=== PATIENT | female | born 1950 | race Caucasian/White ===

== ENCOUNTER 2018-05-08 17:10 | Inpatient (IN) ==
[2018-05-08] MEDS ORDERED: Ipratropium/Albuterol Neb 3 ML ONE (17:24)
--- NOTE | 2018-05-08 17:41 | Emergency Department Note ---
Disposition Clinical Impression: ARDS (adult respiratory distress syndrome), LACY (acute kidney injury), Severe sepsis Anemia Qualifiers: Anemia type: unspecified type Qualified Code(s): D64.9 - Anemia, unspecified Pneumonia Qualifiers: Pneumonia type: due to unspecified organism Laterality: bilateral Lung location: unspecified part of lung Qualified Code(s): J18.9 - Pneumonia, unspecified organism Acute respiratory failure Qualifiers: Respiratory failure complication: hypoxia Qualified Code(s): J96.01 - Acute respiratory failure with hypoxia Disposition: Admitted As Inpatient Condition: Critical Referrals: Elda Cobb CNP [Primary Care Provider] - Forms: ED Satisfaction Letter Time of Disposition: 19:20 SOB HPI - General Chief Complaint: ED Shortness of Breath/Dyspnea Stated Complaint: YESENIA Time Seen by Provider: 05/08/18 17:29 Source: patient, family Mode of arrival: ambulatory Limitations: no limitations Nursing Notes Reviewed: Yes Vital Signs Reviewed: Yes - History of Present Illness 67-year-old female history of hypertension hyperlipidemia arrives to the emergency department with complaint of difficulty in breathing. The patient has been experiencing upper respiratory infection like symptoms, cough, congestion, productive cough over the course of the past few weeks. The states that over the past 12 hours she is acutely worsened to the point where she was struggling to breathe at home. The patient arrives to our emergency department in through triage was noted to be in the mid 50s to 60s and pulse oximetry. She was quickly brought back to the resuscitation bay. She was quickly placed on 15 L nonrebreather mask and subsequently on BiPAP. The patient was ashen martinez upon arrival to the emergency department and stated she was going to pass out. Upon being placed on BiPAP, she quickly turned around and is responsive and answering questions appropriately. Her O2 saturation remains in the upper 80s to low 90s at this time. The patient is no longer in any respiratory distress. The patient denies any complaints to include chest pain, abdominal pain, nausea, vomiting, unilateral leg swelling, recent surgeries, immobilizations, hemoptysis, history of DVT or PE. The patient is no previous cardiac history. Patient denies any other complaints at this time. - Related Data Allergies Allergy/AdvReac Type Severity Reaction Status Date / Time cephalexin [From Keflex] Allergy Hives Verified 10/05/17 11:38 All systems ED: reviewed and negative except as stated. Constitutional: Reports: chills, weakness. Denies: fever ENT ED: Denies: dysphagia Cardiovascular: Reports: dyspnea on exertion. Denies: chest pain, orthopnea, edema, syncope Respiratory: Reports: cough, dyspnea, wheezes, sputum production. Denies: hemoptysis, stridor Gastrointestinal: Denies: abdominal pain, nausea, vomiting, melena, hematochezia Genitourinary: Denies: urgency, dysuria Musculoskeletal: Reports: myalgia Integumentary: Denies: rash Neurological: Denies: headache Past Medical History - Past Medical History Attestation: Yes The following information was validated with the patient. Source: patient, old records reviewed Medical history: Reports: hyperlipidemia, hypertension, RA Surgical history: Reports: other Psychiatric history: Reports: anxiety - Social History Smoking Status: Former smoker Smokeless Tobacco Status: No Alcohol use: Reports: none Drug use: Reports: none Physical Exam - General Limitations: no limitations General appearance: alert, in distress, other (pale) - Head Head exam: atraumatic, normocephalic, normal inspection - Eye Eye exam: Present: EOMI - ENT ENT exam: normal oropharynx, mucous membranes moist - Neck Neck exam: Present: normal inspection, full ROM, trachea midline - Chest Chest inspection: Present: normal inspection, symmetric chest wall rise. Absent: tenderness - Respiratory Respiratory exam: Present: respiratory distress (Severe), wheezes, accessory muscle use, other (Rales and rhonchi noted in bilateral lung blackwood that are diffuse., Noted moderate diffuse wheezing) - Cardiovascular Cardiovascular exam: Present: regular rate, normal rhythm, normal heart sounds - Abdominal Exam Abdominal exam: Present: soft, Non-Tender. Absent: tenderness, distention, guarding, rebound, rigidity - Extremities Exam Extremities exam: Present: normal inspection, full ROM. Absent: tenderness, pedal edema - Neurological Exam Neurological exam: Present: alert, oriented X3, CN II-XII intact - Skin Skin exam: Present: warm, dry, intact, normal color Course Vital Signs Temperature 97.7 F 05/08/18 17:19 Pulse Rate 73 05/08/18 17:19 Respiratory Rate 24 05/08/18 17:19 Blood Pressure 150/61 05/08/18 17:19 O2 Sat by Pulse Oximetry 86 03/06/19 17:19 Temperature 97.7 F 05/08/18 17:19 Pulse Rate 58 05/08/18 18:20 Respiratory Rate 22 05/08/18 18:20 Blood Pressure 127/59 05/08/18 18:20 O2 Sat by Pulse Oximetry 97 05/08/18 18:20 Oxygen Delivery Oxygen Delivery Bipap Shortness of Breath/Dyspnea - MDM Narrative Medical decision making narrative: Patient's workup in the emergency department demonstrates findings concerning for septic shock likely secondary to pneumonia. The patient is a RADS. She is an acute kidney failure as well. The patient was found to be anemic with hemoglobin of 6.1. The patient will be transfused 2 units of blood. She was given 30 mL/kg IV fluids. The patient was started on vancomycin, meropenem and azithromycin. The patient had a flu swab that was obtained. That is currently pending at this time. The patient had consultation with nephrology who was seen the patient consultation. The patient will be admitted to the ICU at this time. Accepted by Dr. Weber. - Lab Data Lab results reviewed: Yes I reviewed the patient's lab results. Result diagrams: 05/08/18 17:24 05/08/18 17:24 Lab Results 05/08/18 05/08/18 05/08/18 Range/Units 17:24 17:24 17:24 WBC 27.0 H (4.3-11.1) K/mcL RBC 2.15 L (3.82-4.97) M/mcL Hgb 6.1 L (11.5-15.4) g/dL Hct 19.0 L (35.3-44.9) % MCV 88.4 (83.0-100.0) fL MCH 28.4 (28.0-33.3) pg MCHC 32.1 (31.6-35.5) g/dL RDW 13.8 (11.5-14.5) % Plt Count 688 H (140-400) K/mcL MPV 9.7 (9.4-12.4) fL Immature Gran % 2.8 (0-4) % Seg Neutrophils % 86.5 % Lymphocytes % 5.0 % Monocytes % 5.5 % Eosinophils % 0.1 % Basophils % 0.1 % Neutrophils # 23.4 H (1.6-8.9) K/mcL Lymphocytes # 1.4 (0.6-4.6) K/mcL Monocytes # 1.5 H (0.0-1.3) K/mcL Eosinophils # 0.0 (0.0-0.6) K/mcL Basophils # 0.0 (0.0-0.2) K/mcL Nucleated RBCs/100 WBC 0.2 H (0) /100 WBC Platelet Estimate Marked Increase H (Normal) Rouleaux Present A (Not Present) VBG pH (7.32-7.42) pH Units VBG pCO2 (41-51) mmHg VBG pO2 (25-50) mmHg VBG HCO3 (21-27) mEq/L Sodium 131 L (136-145) mEq/L Potassium 5.1 (3.5-5.1) mEq/L Chloride 94 L (98-107) mEq/L Carbon Dioxide 17 L (23-29) mEq/L BUN 95 H (8-23) mg/dL Creatinine 6.03 H (0.60-1.20) mg/dL Est GFR ( Amer) 8 L (> 60) Est GFR (Non-Af Amer) 7 L (> 60) BUN/Creatinine Ratio 16 (6-26) Glucose 182 H (70-105) mg/dL Calculated Osmolality 306 H (280-300) Lactic Acid 4.9 H* (0.5-2.2) mmol/L Calcium 8.8 (8.6-10.3) mg/dL Troponin I 0.04 H* (< 0.04) ng/mL B-Natriuretic Peptide (Less than 100) pg/mL Person Notif of Crit 05/08/18 05/08/18 Range/Units 17:24 17:55 WBC (4.3-11.1) K/mcL RBC (3.82-4.97) M/mcL Hgb (11.5-15.4) g/dL Hct (35.3-44.9) % MCV (83.0-100.0) fL MCH (28.0-33.3) pg MCHC (31.6-35.5) g/dL RDW (11.5-14.5) % Plt Count (140-400) K/mcL MPV (9.4-12.4) fL Immature Gran % (0-4) % Seg Neutrophils % % Lymphocytes % % Monocytes % % Eosinophils % % Basophils % % Neutrophils # (1.6-8.9) K/mcL Lymphocytes # (0.6-4.6) K/mcL Monocytes # (0.0-1.3) K/mcL Eosinophils # (0.0-0.6) K/mcL Basophils # (0.0-0.2) K/mcL Nucleated RBCs/100 WBC (0) /100 WBC Platelet Estimate (Normal) Rouleaux (Not Present) VBG pH 7.18 L* (7.32-7.42) pH Units VBG pCO2 44 (41-51) mmHg VBG pO2 66 H (25-50) mmHg VBG HCO3 16 L (21-27) mEq/L Sodium (136-145) mEq/L Potassium (3.5-5.1) mEq/L Chloride (98-107) mEq/L Carbon Dioxide (23-29) mEq/L BUN (8-23) mg/dL Creatinine (0.60-1.20) mg/dL Est GFR ( Amer) (> 60) Est GFR (Non-Af Amer) (> 60) BUN/Creatinine Ratio (6-26) Glucose (70-105) mg/dL Calculated Osmolality (280-300) Lactic Acid (0.5-2.2) mmol/L Calcium (8.6-10.3) mg/dL Troponin I (< 0.04) ng/mL B-Natriuretic Peptide 2052 H (Less than 100) pg/mL Person Notif of Camila GOLDSTEIN - Radiology Data Radiology results reviewed: Yes I reviewed the patient's radiology results. Chest X-Ray 05/08/18 17:29 IMPRESSION: 1. Diffuse airspace opacities, right greater left. Findings are concerning for infection in the appropriate clinical setting. Asymmetric edema remains a differential consideration. D/ / Aura De Jesus MD / Aura De Jesus MD Interpreting Provider: Aura De Jesus MD - EKG Data EKG attestation: Yes I reviewed and interpreted this EKG. EKG results narrative: Heart rate 59 beats for minute. Normal sinus bradycardia. No ST elevation or ST depression noted. No acute changes noted.
[2018-05-08] MEDS ORDERED: Ipratropium/Albuterol Neb 3 ML IH STA (17:49)
[2018-05-08] MEDS ORDERED: Meropenem 1,000 MG in Water for inj. (sterile) 20 ML 10 ML IVP STA (17:54)
[2018-05-08] MEDS ORDERED: Azithromycin 500 MG in D5% in Water 250 ML IVPB ONE (17:54)
[2018-05-08 17:58] LABS: Basophils % 0.1 %; Eosinophils % 0.1 %; Hemoglobin 6.1 g/dL (11.5-15.4); Immature Granulocytes % 2.8 % (0-4); Lymphocytes # 1.4 K/mcL (0.6-4.6); Mean Corpuscular HGB Conc 32.1 g/dL (31.6-35.5); Mean Corpuscular Hemoglobin 28.4 pg (28.0-33.3); Mean Corpuscular Volume 88.4 fL (83.0-100.0); Mean Platelet Volume 9.7 fL (9.4-12.4); Monocytes # 1.5 K/mcL (0.0-1.3); Monocytes % 5.5 %; Nucleated Red Blood Cells 0.2 /100 WBC (0); Platelet Count 688 K/mcL (140-400); Red Blood Count 2.15 M/mcL (3.82-4.97); Red Cell Distribution Width 13.8 % (11.5-14.5); Segmented Neutrophils % 86.5 %
[2018-05-08 18:00] LABS: Neutrophils # 23.4 K/mcL (1.6-8.9)
[2018-05-08 18:03] LABS: VBG HCO3 16 mEq/L (21-27); VBG PCO2 44 mmHg (41-51); VBG PH 7.18 pH Units (7.32-7.42); VBG PO2 66 mmHg (25-50)
[2018-05-08 18:19] LABS: Calcium 8.8 mg/dL (8.6-10.3); Potassium 5.1 mEq/L (3.5-5.1)
[2018-05-08 18:21] LABS: Platelet Estimate Marked Increase (Normal); Rouleaux Present (Not Present)
[2018-05-08 18:24] LABS: Troponin I 0.04 ng/mL (< 0.04)
[2018-05-08] MEDS ORDERED: Aspirin 325 MG TABLET PO ONE (18:34)
--- NOTE | 2018-05-08 19:24 | Emergency Department Note ---
Disposition Clinical Impression: Septic shock, ARDS (adult respiratory distress syndrome), LACY (acute kidney injury) Anemia Qualifiers: Anemia type: unspecified type Qualified Code(s): D64.9 - Anemia, unspecified Pneumonia Qualifiers: Pneumonia type: due to unspecified organism Laterality: bilateral Lung location: unspecified part of lung Qualified Code(s): J18.9 - Pneumonia, unspecified organism Acute respiratory failure Qualifiers: Respiratory failure complication: hypoxia Qualified Code(s): J96.01 - Acute respiratory failure with hypoxia Disposition: Admitted As Inpatient Condition: Critical Referrals: Elda Cobb [employer] EDGER [Primary Care Provider] - Forms: ED Satisfaction Letter General Adult HPI - General Chief complaint: ED Shortness of Breath/Dyspnea Stated complaint: YESENIA Time Seen by Provider: 05/08/18 17:29 Source: patient, family Mode of arrival: ambulatory Limitations: no limitations - History of Present Illness Pain Scale: 0 - Related Data Allergies Allergy/AdvReac Type Severity Reaction Status Date / Time cephalexin [From Keflex] Allergy Hives Verified 10/05/17 11:38 Constitutional: Reports: chills, weakness. Denies: fever ENT ED: Denies: dysphagia Cardiovascular: Reports: dyspnea on exertion. Denies: chest pain, orthopnea, edema, syncope Respiratory: Reports: cough, dyspnea, wheezes, sputum production. Denies: hemoptysis, stridor Gastrointestinal: Denies: abdominal pain, nausea, vomiting, melena, hematochezia Genitourinary: Denies: urgency, dysuria Musculoskeletal: Reports: myalgia Integumentary: Denies: rash Neurological: Denies: headache Past Medical History - Past Medical History Medical history: Reports: hyperlipidemia, hypertension, RA Surgical history: Reports: other Psychiatric history: Reports: anxiety - Social History Smoking Status: Former smoker Smokeless Tobacco Status: No Alcohol use: Reports: none Drug use: Reports: none Physical Exam - General Limitations: no limitations General appearance: alert, in distress, other (pale) Course Vital Signs Temperature 97.7 F 05/08/18 17:19 Pulse Rate 73 05/08/18 17:19 Respiratory Rate 24 05/08/18 17:19 Blood Pressure 150/61 05/08/18 17:19 O2 Sat by Pulse Oximetry 86 05/08/18 17:19 Temperature 97.7 F 05/08/18 17:19 Pulse Rate 58 05/08/18 18:20 Respiratory Rate 22 05/08/18 18:20 Blood Pressure 127/59 05/08/18 18:20 O2 Sat by Pulse Oximetry 97 05/08/18 18:20 Oxygen Delivery Oxygen Delivery Bipap Medical Decision Making - Lab Data Result diagrams: 05/08/18 17:24 05/08/18 17:24 Lab Results 05/08/18 05/08/18 05/08/18 Range/Units 17:24 17:24 17:24 WBC 27.0 H (4.3-11.1) K/mcL RBC 2.15 L (3.82-4.97) M/mcL Hgb 6.1 L (11.5-15.4) g/dL Hct 19.0 L (35.3-44.9) % MCV 88.4 (83.0-100.0) fL MCH 28.4 (28.0-33.3) pg MCHC 32.1 (31.6-35.5) g/dL RDW 13.8 (11.5-14.5) % Plt Count 688 H (140-400) K/mcL MPV 9.7 (9.4-12.4) fL Immature Gran % 2.8 (0-4) % Seg Neutrophils % 86.5 % Lymphocytes % 5.0 % Monocytes % 5.5 % Eosinophils % 0.1 % Basophils % 0.1 % Neutrophils # 23.4 H (1.6-8.9) K/mcL Lymphocytes # 1.4 (0.6-4.6) K/mcL Monocytes # 1.5 H (0.0-1.3) K/mcL Eosinophils # 0.0 (0.0-0.6) K/mcL Basophils # 0.0 (0.0-0.2) K/mcL Nucleated RBCs/100 WBC 0.2 H (0) /100 WBC Platelet Estimate Marked Increase H (Normal) Rouleaux Present A (Not Present) VBG pH (7.32-7.42) pH Units VBG pCO2 (41-51) mmHg VBG pO2 (25-50) mmHg VBG HCO3 (21-27) mEq/L Sodium 131 L (136-145) mEq/L Potassium 5.1 (3.5-5.1) mEq/L Chloride 94 L (98-107) mEq/L Carbon Dioxide 17 L (23-29) mEq/L BUN 95 H (8-23) mg/dL Creatinine 6.03 H (0.60-1.20) mg/dL Est GFR ( Amer) 8 L (> 60) Est GFR (Non-Af Amer) 7 L (> 60) BUN/Creatinine Ratio 16 (6-26) Glucose 182 H (70-105) mg/dL Calculated Osmolality 306 H (280-300) Lactic Acid 4.9 H* (0.5-2.2) mmol/L Calcium 8.8 (8.6-10.3) mg/dL Troponin I 0.04 H* (< 0.04) ng/mL B-Natriuretic Peptide (Less than 100) pg/mL Person Notif of Crit 05/08/18 05/08/18 Range/Units 17:24 17:55 WBC (4.3-11.1) K/mcL RBC (3.82-4.97) M/mcL Hgb (11.5-15.4) g/dL Hct (35.3-44.9) % MCV (83.0-100.0) fL MCH (28.0-33.3) pg MCHC (31.6-35.5) g/dL RDW (11.5-14.5) % Plt Count (140-400) K/mcL MPV (9.4-12.4) fL Immature Gran % (0-4) % Seg Neutrophils % % Lymphocytes % % Monocytes % % Eosinophils % % Basophils % % Neutrophils # (1.6-8.9) K/mcL Lymphocytes # (0.6-4.6) K/mcL Monocytes # (0.0-1.3) K/mcL Eosinophils # (0.0-0.6) K/mcL Basophils # (0.0-0.2) K/mcL Nucleated RBCs/100 WBC (0) /100 WBC Platelet Estimate (Normal) Rouleaux (Not Present) VBG pH 7.18 L* (7.32-7.42) pH Units VBG pCO2 44 (41-51) mmHg VBG pO2 66 H (25-50) mmHg VBG HCO3 16 L (21-27) mEq/L Sodium (136-145) mEq/L Potassium (3.5-5.1) mEq/L Chloride (98-107) mEq/L Carbon Dioxide (23-29) mEq/L BUN (8-23) mg/dL Creatinine (0.60-1.20) mg/dL Est GFR ( Amer) (> 60) Est GFR (Non-Af Amer) (> 60) BUN/Creatinine Ratio (6-26) Glucose (70-105) mg/dL Calculated Osmolality (280-300) Lactic Acid (0.5-2.2) mmol/L Calcium (8.6-10.3) mg/dL Troponin I (< 0.04) ng/mL B-Natriuretic Peptide 2052 H (Less than 100) pg/mL Person Notif of Camila GOLDSTEIN Attestation Statement - Attestation Attestation: I examined this patient and my medical decision-making was reviewed with the Resident Physician. I agree with the documented findings, disposition and treatment plan as described except to the extent set forth below. Patient arrives profoundly hypoxemic and pale-appearing. Heart rate and blood pressure unremarkable. Chest x-ray shows diffuse interstitial pneumonia versus ARDS. Profoundly anemic with hemoglobin of 6, transfusion ordered. Has a metabolic acidosis evident on her venous blood gas. Significant leukocytosis and thrombocytosis. Vancomycin, Zithromax and meropenem for broad-spectrum a ntibiotic coverage for suspected pulmonary infection with resultant ARDS. Oxygenation drastically improved in ED, from the 60s on room air with a good waveform, to the low 80s on a nonrebreather mask, to the mid to high 90s on BiPAP. On BiPAP, she was comfortable with a slowed respiratory rate, sitting up in bed taxing on her phone and interacting with her . Intubation would not be appropriate at this time. She has acute renal failure with BUN of 98, creatinine of 6. Potassium is normal. Lactate significant elevated. She is given IV fluids in addition to the blood transfusion. Critical care time: I was directly and primarily involved in the care of this patient for 35 minutes excluding procedures.
[2018-05-08] MEDS: 0.9 % Sodium Chloride 1,000 ML IVC SCH ×2 (19:31→22:34)
[2018-05-08] MEDS ORDERED: 0.9 % Sodium Chloride 250 ML ONE (20:59)
[2018-05-08] MEDS ORDERED: *HR* Atropine Sulfate 1 MG/10 ML SYRINGE ONE (21:45)
[2018-05-08] MEDS: FentaNYL (PF) 1,000 MCG in 0.9 % Sodium Chloride 80 ML IVC SCH (23:29)
--- NOTE | 2018-05-09 00:21 | Internal Med History&Physical ---
<Capo Horton - Last Filed: 05/09/18 02:34> Date of Encounter: 05/09/18 Time of Encounter: 21:00 Internal Medicine - H&P: HPI Chief complaint: SOB History of present illness: Ms. Benjamin is a 67 year old female who presented to the emergency department with concern for worsening shortness of breath. Patient has been battling several respiratory infections over the last 2 months. She is reportedly been on amoxicillin as well as Augmentin. Patient states that she never got better. She reports that she has had worsening shortness of breath while ambulation, most being today which brought her to the emergency department. She states that she was a smoker long time ago, but never had a formal diagnosis of COPD he has never been on oxygen via nasal cannula. Patient denies any chest pain, pressure, tightness. She denies any swelling in her lower extremities. She does report that she has had cough. Patient was called from the emergency department with concern for ARDS in the setting of severe sepsis with an organ damage consistent with shock. Blood pressures were normal at that time and she did not require any pressors. Patient was currently on BiPAP and mentating appropriately. Does also report that patient was anemic with hemoglobin 6.1, leukocytosis of 27. The order for transfusion of 2 units of PRBCs was made. Patient had a creatinine of 6.03 with a GFR of 7. Nephrology was consulted. Patient was able to speak to me upon questioning. Past Med Surg Social Fam HX - Past Medical History Medical history: hyperlipidemia, hypertension, RA Additional medical history: left leg pain Psychiatric history: anxiety - Past Surgical History Surgical History: other Additional surgical history: T&A, tubal ligation. heart cath - Social History Smoking Status: Former smoker Smokeless Tobacco Status: No Alcohol use: none Drug use: none Internal Medicine - H&P: Meds Atenolol [Tenormin] 25 mg PO DAILY 05/08/18 [History] Bupropion HCl [Wellbutrin Xl] 300 mg PO QAM 05/08/18 [History] Cholecalciferol (Vitamin D3) [Vitamin D] 400 unit PO DAILY 05/08/18 [History] Cinnamon Bark [Cinnamon] 500 mg PO DAILY 05/08/18 [History] Losartan/Hydrochlorothiazide [Losartan-Hctz 100-25 mg Tab] 1 each PO DAILY 05/08/18 [History] [place]-3S/Dha/Epa/Fish Oil [Fish Oil Dr 1,000 mg Softgel] 1 each PO DAILY 05/08/18 [History] Allergy/AdvReac Type Severity Reaction Status Date / Time cephalexin [From Keflex] Allergy Hives Verified 10/05/17 11:38 All Systems PM: A 10-system review of systems was performed and is negative for pertinent findings except as documented above in the HPI. - Constitutional Constitutional: malaise - Cardiovascular Cardiovascular ROS IM: dyspnea on exertion - Respiratory Respiratory: dyspnea - Gastrointestinal Gastrointestinal: no abdominal pain - Genitourinary Genitourinary: no dysuria - Hematologic/Lymphatic Hematologic/Lymphatic: no easy bleeding - Constitutional Vitals: Temp Pulse Resp BP Pulse Ox 97.0 F L 52 18 95/50 99 05/09/18 00:04 05/09/18 00:04 05/09/18 00:04 05/09/18 00:04 05/09/18 00:04 General appearance: Present: A&O X 3 Exam: General: The patient on BiPAP, with abdominal and chest retractions, mentating perfectly, but appearing very short of breath Head: autraumatic, EOMI, no conjuncitval pallor, no scleral icterus, Neck: neck soft, trachea midline Chest:: Equal chest wall rise Lungs: Diffuse crackles bilaterally, no wheezes, patient BiPAP Heart: normal heart sounds, normal rhythm, Abdomen: soft, non-tender, no rigidity, no guarding, no rebdound tenderness Integumentary: Skin warm, dry, and intact Lower extremity: No pedal edema Neuro: Alert Psych: normal affect, normal mood Internal Med - H&P Results - Labs CBC & Chem 7: 05/08/18 17:24 05/08/18 17:24 Labs: Short CBC 05/08/18 Range/Units 17:24 WBC 27.0 H (4.3-11.1) K/mcL Hgb 6.1 L (11.5-15.4) g/dL Hct 19.0 L (35.3-44.9) % Plt Count 688 H (140-400) K/mcL Neutrophils # 23.4 H (1.6-8.9) K/mcL BMP 05/08/18 17:24 Sodium 131 L Potassium 5.1 Chloride 94 L Carbon Dioxide 17 L BUN 95 H Creatinine 6.03 H Glucose 182 H Calcium 8.8 Cardiac Enzymes 05/08/18 Range/Units 17:24 Troponin I 0.04 H* (< 0.04) ng/mL - ABG Interpretation ABG results: 05/08/18 17:55 VBG pH 7.18 L* VBG pCO2 44 VBG pO2 66 H VBG HCO3 16 L - Impressions ITS Impressions Chest X-Ray 05/08/18 17:29 IMPRESSION: 1. Diffuse airspace opacities, right greater left. Findings are concerning for infection in the appropriate clinical setting. Asymmetric edema remains a differential consideration. D/ / Aura De Jesus MD / Aura De Jesus MD Interpreting Provider: Aura De Jesus MD Chest X-Ray 05/08/18 23:04 IMPRESSION: Life support devices as above. Redemonstration of diffuse right greater than left heterogeneous opacities and consolidation. D/ / Nirav Alcantar / Nirav Sessions Interpreting Provider: Nirav Alcantar - Assessment and Plan (1) ARDS (adult respiratory distress syndrome) Current Visit: Yes Status: Acute Assessment and plan: Patient with concerns for ARDS with chest x-ray with bilateral diffuse infiltrates in the setting of recent diagnosis of URI. Patient with elevated lactic acid of 4.9. Patient not provided with Fluid boluses at this time to maintain lung support in the setting of ARDS. Repeat lactic acid not performed at scheduled time secondary to patient's respiratory status requiring intubation. In the emergency department, patient was tachypnic, and appeared to be working hard to breathe. Patient appeared to become fatigued as she arrived to the ICU and was not mentating as well. It was felt necessary to intubate her as she did not improve on the BIPAP and for ARDS lung protective strategies. My attending Dr. Birmingham spoke with Dr. Schwartz in regards to the patient. He agreeed with intubation as well as not providing boluses of fluids at this time. - Patient intubated, sedated with propofol and fentanyl - paralyze patient with vecuronium at the time - one dose of solu-medrol 125mg IV - continue low tidal volumes on ventilator for ideal body weight at 300 with rate of 20 with PEEP of 8 - legionella, urine strep antigen, influenza negative, RIP negative -blood cultures pending - Repeat ABG at 0400 - initial troponin of 0.04, bnp 2051, obtain echocardiogram to rule out CHF. - pulmonology consulted Chest X-Ray 05/08/18 23:04 IMPRESSION: Life support devices as above. Redemonstration of diffuse right greater than left heterogeneous opacities and consolidation. D/ / Nirav Sessions / Nirav Sessions Interpreting Provider: Nirav Alcantar (2) Pneumonia Current Visit: Yes Status: Acute Assessment and plan: - One dose of vancomycin, meripenem, azithromycin in the ED - Will give zosyn, vancomycin, levoquine. - Awaiting MRSA swab -sputum cultures ordered -respiratory infection panel sent and was negative Qualifiers: Pneumonia type: due to unspecified organism Laterality: bilateral Lung location: unspecified part of lung Qualified Code(s): J18.9 - Pneumonia, unspecified organism (3) Anemia Current Visit: Yes Status: Acute Assessment and plan: Patient anemic with unknown source at this time. Patient required transfusion of two units of blood at time of arrival to the ICU. -Recheck hemoglobin and hematocrit after transfusion of blood - obtain hemocult - consider EGD, colonoscopy - obtain peripheral blood smear - patient with large blood in urine, consider CT abdomen and pelvis once patient becomes more stable Qualifiers: Anemia type: unspecified type Qualified Code(s): D64.9 - Anemia, unspecified (4) Acute respiratory failure Current Visit: Yes Status: Acute Assessment and plan: as above Qualifiers: Respiratory failure complication: hypoxia Qualified Code(s): J96.01 - Acute respiratory failure with hypoxia (5) LACY (acute kidney injury) Current Visit: Yes Status: Acute Assessment and plan: Patient with creatinine of 6.03. Suspect that this is all secondary to end organ damage from patient's ARDS. Patients potassium currently 5.1 - nephrology consulted by the emergency department - obtain urine sodium -obtain urine creatinine - magnesium -phosphorous - consider retroperioneal US, CT abdomen and pelvis as mentioned above (6) Severe sepsis Current Visit: Yes Status: Acute Assessment and plan: see above (7) DVT prophylaxis Current Visit: Yes Status: Acute Assessment and plan: ICDs at this time as patient significantly anemic (8) Full code status Current Visit: Yes Status: Acute - Time Spent With Patient Total time spent is greater than 50% in coordination of care (as documented) at patient's floor/unit and/or counseling patient: Procedures - Intubation sedative: Etomidate Mg Given: 20 paralytic: Succinylcholine Mg Given: 70 Laryngoscope: Fallon ET Tube Size: 7.5 ET Tube Uncuffed: No Tube Secured Depth (cm): 22 Tube Secured Location: lips Tube Placement Confirmation: visualized tube passing through cords, equal breath sounds bilaterally, no breath sounds over epigastrium, confirmation by capnometry Patient Tolerated Procedure: well, no complications Intubation Complications: none <Ryna Birmingham - Last Filed: 05/09/18 05:38> Date of Encounter: 05/08/18 Time of Encounter: 21:10 Past Med Surg Social Fam HX - Past Medical History Attestation: Yes The following information was validated with the patient. Source: patient, old records reviewed, obtained from family, other (phone conversation w son ([place], [place]) and ER conversations) - Constitutional Constitutional: chills, fatigue, fever(s), weakness, no night sweats - EENT Eyes: no blurry vision, no change in vision Ears: no ear pain, no tinnitus Nose, mouth and throat: no nasal congestion, no nasal discharge, no sore throat - Cardiovascular Cardiovascular ROS IM: dyspnea, dyspnea on exertion, no chest pain, no edema, no lightheadedness, no paroxysmal nocturnal dyspnea - Respiratory Respiratory: cough, dyspnea, dyspnea on exertion, wheezing, chest congestion, change in phlegm color, no hemoptysis, no pain on inspiration, no excessive phlegm production, no pain with cough - Gastrointestinal Gastrointestinal: nausea, no abdominal pain, no diarrhea, no hematemesis, no hematochezia, no melena, no vomiting - Genitourinary Genitourinary: no dysuria, no flank pain, no hematuria Menstruation: post menopausal Additional comments: no post-menopausal bleeding - Musculoskeletal Musculoskeletal ROS IM: no arthralgias, no back pain, no myalgias - Integumentary Integumentary IM: no rash, no jaundice - Neurological Neurological ROS: no dizziness, no focal weakness, no frequent falls, no headache(s) - Psychiatric Psychiatric: no anxiety, no depression - Endocrine Endocrine IM: no polydipsia, no polyphagia, no polyuria - Allergic/Immunologic Allergic/Immunologic: wheezing, no GI upset with certain foods - Constitutional Vitals: Temp Pulse Resp BP Pulse Ox 95.0 F L 46 26 93/51 96 05/09/18 03:00 05/09/18 05:00 05/09/18 05:00 05/09/18 05:00 05/09/18 05:00 General appearance: Present: cooperative, A&O X 3, pleasant, severe distress, answers questions appropriately Exam: Patient with development of respiratory fatigue and depressing mental status from initial assessment up to the point of intubation - Head Head exam: Present: atraumatic, normal inspection - Eye Eye exam: Present: EOMI, PERRL. Absent: scleral icterus, conjuntiva pink (pale) - ENT ENT exam: Present: mucous membranes dry, normal exam, normal oropharynx - Neck Neck exam general surgery: Present: full ROM, supple, trachea midline. Absent: lymphadenopathy, tenderness, nuchal rigidity, thyromegaly - Respiratory Respiratory exam: Present: accessory muscle use, prolonged expiratory phase, rales (dry crackles throughout -- predominantly in right base), respiratory distress, rhonchi, wheezes, tachypnea. Absent: chest wall tenderness Additional comments: accessory muscle use - Cardiovascular Cardiovascular exam: Present: bradycardia (HR 50's), distant heart sounds, RRR, +S1, +S2. Absent: diastolic murmur, JVD, systolic murmur - GI/Abdominal GI/Abdominal exam: Present: normal bowel sounds, soft, no peritoneal signs. Absent: guarding, hepatomegaly, mass, rebound, splenomegaly, tenderness - Extremities Exam Extremities exam: Present: full ROM, warm, radial pulses palpable and symmetrical. Absent: calf tenderness, joint swelling, normal capillary refill (delayed at roughly 3 -4 seconds), pedal edema, tenderness - Back Exam Back exam: Absent: CVA tenderness (L), CVA tenderness (R) - Neurological Exam Neurological exam: Present: alert, CN II-XII intact, oriented X3, no focal deficits, strengths equal and symetr throughout. Absent: motor sensory deficit - Psychiatric Psychiatric exam: Present: normal affect, normal mood - Skin Skin exam: Present: dry, intact, pallor, warm. Absent: petechiae, rash Internal Med - H&P Results - Labs CBC & Chem 7: 05/09/18 03:38 05/09/18 03:38 Labs: Short CBC 05/08/18 05/09/18 Range/Units 17:24 03:38 WBC 27.0 H 19.8 H (4.3-11.1) K/mcL Hgb 6.1 L 7.7 L D (11.5-15.4) g/dL Hct 19.0 L 23.4 L (35.3-44.9) % Plt Count 688 H 469 H (140-400) K/mcL Neutrophils # 23.4 H 17.2 H (1.6-8.9) K/mcL BMP 05/08/18 05/09/18 17:24 03:38 Sodium 131 L 128 L Potassium 5.1 5.3 H Chloride 94 L 94 L Carbon Dioxide 17 L 20 L BUN 95 H 94 H Creatinine 6.03 H 6.33 H Glucose 182 H 125 H Calcium 8.8 8.3 L Cardiac Enzymes 05/08/18 05/09/18 Range/Units 17:24 03:38 Troponin I 0.04 H* 0.03 (< 0.04) ng/mL Urine 05/09/18 Range/Units 00:42 Urine Color Dark Yellow (Yellow) Urine Clarity Turbid A (Clear) Urine pH 5.0 (5.0-8.0) pH Units Ur Specific [place]er 1.019 (1.010-1.025) Urine Protein 100 H (Neg-Trace) mg/dL Urine Glucose (UA) Normal (Normal) mg/dL - ABG Interpretation Interpretation: ABG interpreted by me ABG results: 05/08/18 05/09/18 05/09/18 17:55 00:39 04:37 ABG pH 7.28 L 7.17 L* ABG pCO2 43 62 H ABG pO2 100 100 ABG HCO3 20 L 22 ABG Total CO2 22 24 ABG O2 Saturation 97 95 ABG Base Excess -6 L -6 L VBG pH 7.18 L* VBG pCO2 44 VBG pO2 66 H VBG HCO3 16 L Interpretation: metabolic acidosis - Impressions ITS Impressions Chest X-Ray 05/08/18 17:29 IMPRESSION: 1. Diffuse airspace opacities, right greater left. Findings are concerning for infection in the appropriate clinical setting. Asymmetric edema remains a differential consideration. D/ / Aura De Jesus MD / Aura De Jesus MD Interpreting Provider: Aura De Jesus MD Chest X-Ray 05/08/18 23:04 IMPRESSION: Life support devices as above. Redemonstration of diffuse right greater than left heterogeneous opacities and consolidation. D/ / Nirav Sessions / Nirav Sessions Interpreting Provider: Niarv Sessions - Diagnostic Studies Chest x-ray Status: image reviewed by me (diffuse infiltrates concerning for ARDS) - Time Spent With Patient Total time spent is greater than 50% in coordination of care (as documented) at patient's floor/unit and/or counseling patient: - Attending Attestation I discussed the patient N[place]QS[place], past medical history, review of systems, lab data, imaging data, and exam findings with Dr. Henderson. I then saw and examined patient independently in the ER and met extensively with patient, family, and her son via telephone. I reassessed the patient several times prior to arrival to the ICU. I contacted Dr. Schwartz and discussed the case with him and my concern for ARDS. We reviewed the history, exam findings, lab data, and imaging findings. He agreed with me that we should likely proceed to intubate her before she decompensates any further. Therefore, once she arrived to the ICU, I reassessed patient again and she had signs and symptoms of respiratory fatigue and worsening somnolence/mental status. I therefore recommended intubation at that time. Patient, , all family members, and her son via telephone, all agreed with my recommendation. Therefore, we proceeded to intubate as detailed separately above by Dr. Henderson. Airway was secured and patient was placed on ventilator. We sedated her and placed her on paralytic agent to help maximize ventilatory support. Based upon clinical picture, exam findings, and ventilatory status are all compatible with ARDS. We ordered respiratory infection panel which was negative. Sputum/tracheal sample is ordered for culture and Gram stain. However, at this time, respiratory is unable to collect any significant sample for culture. Regarding her anemia, patient and family deny any history of blood loss whatsoever. Furthermore, she has no history of any postmenopausal bleeding. She is getting blood transfusions and we will watch her hemoglobin closely. Once stabilized, she will likely need EGD/colonoscopy to rule out any chronic GI blood loss. Nephrology is also consulted as she may need CVVHD. Pulmonology has been consulted as well for ICU/ARDS management. A total of 115 minutes critical care time spent thus far caring for patient, supervising intubation, discussing with family, and coordinating care with Dr. Schwartz and respiratory therapy.
[2018-05-09 00:43] LABS: ABG Base Excess -6 mEq/L (-2 to 3); ABG HCO3 20 mEq/L (21-27); ABG Oxygen Saturation 97 % (95-98); ABG PCO2 43 mmHg (35-45); ABG PH 7.28 pH Units (7.32-7.45); ABG PO2 100 mmHg (85-104); ABG TCO2 22 mEq/L (20-26); Blood Gas Modality PRVC; Blood Gas PEEP 8 cm H2O; Blood Gas Respiration Rate 16; Blood Gas VT 380 cc
[2018-05-09 00:57] LABS: Bilirubin,Urine Negative (Negative); Blood,Urine Large (Negative); Clarity,Urine Turbid (Clear); Color,Urine Dark Yellow (Yellow); Glucose,Urine (UA) Normal (Normal); Ketones,Urine Negative (Negative); Leukocyte Esterase,Urine Moderate (Negative); Nitrite,Urine Negative (Negative); Protein,Urine 100 mg/dL (Neg-Trace); Specific Gravity,Urine 1.019 (1.010-1.025); Urobilinogen,Urine Normal (Normal)
[2018-05-09] MEDS ORDERED: Vecuronium 50 MG in 0.9 % Sodium Chloride 200 ML IVC SCH (01:00)
[2018-05-09 01:11] LABS: Squamous Epithelial Cell,Urine Many per lpf (None-Few); WBC,Urine 15-30 per hpf (0-3)
[2018-05-09 01:12] LABS: Amorphous Sediment,Urine Few (Few); Bacteria,Urine Few per hpf (None-Few)
[2018-05-09 01:49] LABS: Adenovirus Not Detected (Not Detect); Bordetella Pertussis Not Detected (Not Detect); Chlamydophila pneumoniae Not Detected (Not Detect); Coronavirus 229E Not Detected (Not Detect); Coronavirus HKU1 Not Detected (Not Detect); Coronavirus NL63 Not Detected (Not Detect); Coronavirus OC43 Not Detected (Not Detect); Human Metapneumovirus Not Detected (Not Detect); Human Rhinovirus/Enterovirus Not Detected (Not Detect); Influenza A Subtype 2009 H1 Not Detected (Not Detect); Influenza A Untypeable Not Detected (Not Detect); Influenza B Not Detected (Not Detect); Mycoplasma pneumoniae Not Detected (Not Detect); Parainfluenza Virus 1 Not Detected (Not Detect); Parainfluenza Virus 2 Not Detected (Not Detect); Parainfluenza Virus 3 Not Detected (Not Detect); Parainfluenza Virus 4 Not Detected (Not Detect); Respiratory Syncytial Virus Not Detected (Not Detect)
[2018-05-09] MEDS ORDERED: methylPREDNISolone 125 MG/2 ML VIAL IVP ONE (02:32)
[2018-05-09] MEDS: FentaNYL (PF) 1,000 MCG in 0.9 % Sodium Chloride 80 ML IVC SCH (03:15)
[2018-05-09 03:52] LABS: Basophils % 0.2 %; Eosinophils % 0.1 %; Hematocrit 23.4 % (35.3-44.9); Immature Granulocytes % 1.7 % (0-4); Lymphocytes # 1.4 K/mcL (0.6-4.6); Lymphocytes % 6.9 %; Mean Corpuscular HGB Conc 32.9 g/dL (31.6-35.5); Mean Corpuscular Hemoglobin 28.2 pg (28.0-33.3); Mean Corpuscular Volume 85.7 fL (83.0-100.0); Mean Platelet Volume 9.6 fL (9.4-12.4); Monocytes # 0.9 K/mcL (0.0-1.3); Monocytes % 4.3 %; Neutrophils # 17.2 K/mcL (1.6-8.9); Nucleated Red Blood Cells 0.4 /100 WBC (0); Platelet Count 469 K/mcL (140-400); Red Blood Count 2.73 M/mcL (3.82-4.97); Red Cell Distribution Width 14.3 % (11.5-14.5); Segmented Neutrophils % 86.8 %
[2018-05-09 03:53] LABS: Hemoglobin 7.7 g/dL (11.5-15.4)
[2018-05-09 03:58] LABS: VBG Ionized Calcium 1.06 mmol/L (1.15-1.35)
[2018-05-09 04:08] LABS: Calcium 8.3 mg/dL (8.6-10.3); Magnesium 2.7 mg/dL (1.6-2.6); Potassium 5.3 mEq/L (3.5-5.1)
[2018-05-09 04:12] LABS: Phosphorous 9.4 mg/dL (2.7-4.5)
[2018-05-09 04:41] LABS: ABG Base Excess -6 mEq/L (-2 to 3); ABG HCO3 22 mEq/L (21-27); ABG Oxygen Saturation 95 % (95-98); ABG PCO2 62 mmHg (35-45); ABG PH 7.17 pH Units (7.32-7.45); ABG PO2 100 mmHg (85-104); ABG TCO2 24 mEq/L (20-26); Blood Gas Modality PRVC; Blood Gas PEEP 8 cm H2O; Blood Gas Respiration Rate 20; Blood Gas VT 300 cc
[2018-05-09 06:00] LABS: ABG Base Excess -7 mEq/L (-2 to 3); ABG HCO3 21 mEq/L (21-27); ABG Oxygen Saturation 93 % (95-98); ABG PCO2 55 mmHg (35-45); ABG PH 7.19 pH Units (7.32-7.45); ABG PO2 83 mmHg (85-104); ABG TCO2 23 mEq/L (20-26); Blood Gas Modality PRVC; Blood Gas PEEP 8 cm H2O; Blood Gas Respiration Rate 26; Blood Gas VT 300 cc
[2018-05-09] MEDS ORDERED: Piperacillin/Tazobactam 3.375 GM in 0.9 % Sodium Chloride Mini Bag 100 ML IVPB SCH (06:00)
--- NOTE | 2018-05-09 06:17 | Pulmonology Consult Note ---
<LanaCe M - Last Filed: 05/09/18 10:29> Date of Encounter: 05/09/18 Medications and Allergies Atenolol [Tenormin] 25 mg PO DAILY 05/08/18 [History] Bupropion HCl [Wellbutrin Xl] 300 mg PO QAM 05/08/18 [History] Cholecalciferol (Vitamin D3) [Vitamin D] 400 unit PO DAILY 05/08/18 [History] Cinnamon Bark [Cinnamon] 500 mg PO DAILY 05/08/18 [History] Losartan/Hydrochlorothiazide [Losartan-Hctz 100-25 mg Tab] 1 each PO DAILY 05/08/18 [History] [place]-3S/Dha/Epa/Fish Oil [Fish Oil Dr 1,000 mg Softgel] 1 each PO DAILY 05/08/18 [History] Allergy/AdvReac Type Severity Reaction Status Date / Time cephalexin [From Keflex] Allergy Hives Verified 10/05/17 11:38 All Systems: The remainder of the systems were reviewed and are negative Physical Examination Vital Signs: Vital Signs, Last 4 Hours Temp Pulse Resp BP Pulse Ox 05/09/18 09:39 22 99/58 97 05/09/18 09:00 47 22 88/47 97 05/09/18 08:34 22 96 05/09/18 08:00 97.7 F 49 20 87/48 96 05/09/18 07:24 26 91/49 97 05/09/18 07:00 50 26 91/49 96 05/09/18 06:21 26 89/49 95 05/09/18 06:00 48 26 89/50 95 Ventilator Settings Ventilator Settings: Ventilator Settings, Last 8 Hours Ventilator Tidal Volume 380 Setting Ventilator Tidal Volume 380 Setting Ventilator Tidal Volume 380 Setting Ventilator Tidal Volume 380 Setting Ventilator Tidal Volume 300 Setting Ventilator Tidal Volume 300 Setting Ventilator Tidal Volume 300 Setting Ventilator Tidal Volume 300 Setting Ventilator Tidal Volume 300 Setting Ventilator Tidal Volume 300 Setting Ventilator Tidal Volume 300 Setting Ventilator Tidal Volume 300 Setting Ventilator Tidal Volume 300 Setting Ventilator Tidal Volume 300 Setting Ventilator Tidal Volume 300 Setting Ventilator Tidal Volume 300 Setting Ventilator Tidal Volume 300 Setting Ventilator Respiratory Rate 22 Setting Ventilator Respiratory Rate 22 Setting Ventilator Respiratory Rate 20 Setting Ventilator Respiratory Rate 20 Setting Ventilator Respiratory Rate 26 Setting Ventilator Respiratory Rate 26 Setting Ventilator Respiratory Rate 26 Setting Ventilator Respiratory Rate 26 Setting Ventilator Respiratory Rate 26 Setting Ventilator Respiratory Rate 26 Setting Ventilator Respiratory Rate 20 Setting Ventilator Respiratory Rate 20 Setting Ventilator Respiratory Rate 20 Setting Ventilator Respiratory Rate 20 Setting Ventilator Respiratory Rate 20 Setting Ventilator Respiratory Rate 20 Setting Ventilator Respiratory Rate 20 Setting Actual Respiratory Rate 22 Actual Respiratory Rate 22 Actual Respiratory Rate 20 Actual Respiratory Rate 26 Actual Respiratory Rate 26 Actual Respiratory Rate 26 Actual Respiratory Rate 26 Actual Respiratory Rate 26 Actual Respiratory Rate 20 Actual Respiratory Rate 20 Actual Respiratory Rate 20 Actual Respiratory Rate 20 Actual Respiratory Rate 20 Actual Respiratory Rate 20 Positive End Expiratory 8 Pressure Positive End Expiratory 8 Pressure Positive End Expiratory 8 Pressure Positive End Expiratory 8 Pressure Positive End Expiratory 8 Pressure Positive End Expiratory 8 Pressure Positive End Expiratory 8 Pressure Positive End Expiratory 8 Pressure Positive End Expiratory 8 Pressure Positive End Expiratory 8 Pressure Positive End Expiratory 8 Pressure Positive End Expiratory 8 Pressure Positive End Expiratory 8 Pressure Positive End Expiratory 8 Pressure Positive End Expiratory 8 Pressure Positive End Expiratory 8 Pressure Positive End Expiratory 8 Pressure Peak Inspiratory Airway 28 Pressure Peak Inspiratory Airway 31 Pressure Peak Inspiratory Airway 31 Pressure Peak Inspiratory Airway 27 Pressure Peak Inspiratory Airway 33 Pressure Peak Inspiratory Airway 28 Pressure Peak Inspiratory Airway 27 Pressure Peak Inspiratory Airway 27 Pressure Peak Inspiratory Airway 27 Pressure Peak Inspiratory Airway 27 Pressure Peak Inspiratory Airway 27 Pressure Peak Inspiratory Airway 26 Pressure Peak Inspiratory Airway 26 Pressure Peak Inspiratory Airway 26 Pressure Results - Laboratory Findings CBC and BMP: 05/09/18 09:05 05/09/18 09:05 ABG ABG pH 7.18 pH Units (7.32-7.45) L* 05/09/18 08:27 ABG pCO2 53 mmHg (35-45) H 05/09/18 08:27 ABG pO2 91 mmHg (85-104) 05/09/18 08:27 ABG O2 Saturation 94 % (95-98) L 05/09/18 08:27 PT/INR, D-dimer PT 13.6 Seconds (9.4-12.1) H 05/09/18 09:05 Abnormal lab findings: Abnormal lab results WBC 21.0 K/mcL (4.3-11.1) H 05/09/18 09:05 RBC 2.77 M/mcL (3.82-4.97) L 05/09/18 09:05 Hgb 7.8 g/dL (11.5-15.4) L 05/09/18 09:05 Hct 24.2 % (35.3-44.9) L 05/09/18 09:05 RDW 14.6 % (11.5-14.5) H 05/09/18 09:05 Plt Count 447 K/mcL (140-400) H 05/09/18 09:05 Neutrophils # 19.7 K/mcL (1.6-8.9) H 05/09/18 09:05 Lymphocytes # 0.5 K/mcL (0.6-4.6) L 05/09/18 09:05 Nucleated RBCs/100 WBC 0.4 /100 WBC (0) H 05/09/18 09:05 Platelet Estimate Marked Increase (Normal) H 05/08/18 17:24 Rouleaux Present (Not Present) A 05/08/18 17:24 PT 13.6 Seconds (9.4-12.1) H 05/09/18 09:05 ABG pH 7.18 pH Units (7.32-7.45) L* 05/09/18 08:27 ABG pCO2 53 mmHg (35-45) H 05/09/18 08:27 ABG HCO3 20 mEq/L (21-27) L 05/09/18 08:27 ABG O2 Saturation 94 % (95-98) L 05/09/18 08:27 ABG Base Excess -8 mEq/L (-2 to 3) L 05/09/18 08:27 VBG pH 7.18 pH Units (7.32-7.42) L* 05/08/18 17:55 VBG pO2 66 mmHg (25-50) H 05/08/18 17:55 VBG HCO3 16 mEq/L (21-27) L 05/08/18 17:55 Sodium 127 mEq/L (136-145) L 05/09/18 09:05 Potassium 6.2 mEq/L (3.5-5.1) H 05/09/18 09:05 Chloride 94 mEq/L (98-107) L 05/09/18 09:05 Carbon Dioxide 16 mEq/L (23-29) L 05/09/18 09:05 BUN 97 mg/dL (8-23) H 05/09/18 09:05 Creatinine 6.60 mg/dL (0.60-1.20) H 05/09/18 09:05 Est GFR ( Amer) 8 (> 60) L 05/09/18 09:05 Est GFR (Non-Af Amer) 6 (> 60) L 05/09/18 09:05 Glucose 159 mg/dL (70-105) H 05/09/18 09:05 POC Glucose 205 mg/dL (70-99) H 05/08/18 21:34 Calcium 8.2 mg/dL (8.6-10.3) L 05/09/18 09:05 Venous Ioniz Calcium 1.06 mmol/L (1.15-1.35) L 05/09/18 03:54 Phosphorus 9.4 mg/dL (2.7-4.5) H 05/09/18 03:38 Magnesium 2.7 mg/dL (1.6-2.6) H 05/09/18 03:38 B-Natriuretic Peptide 2045 pg/mL (Less than 100) H 05/09/18 03:38 Urine Clarity Turbid (Clear) A 05/09/18 00:42 Urine Protein 100 mg/dL (Neg-Trace) H 05/09/18 00:42 Urine Blood Large (Negative) H 05/09/18 00:42 Ur Leukocyte Esterase Moderate (Negative) H 05/09/18 00:42 Urine Microscopic RBC 5-15 per hpf (0-3) H 05/09/18 00:42 Urine Microscopic WBC 15-30 per hpf (0-3) H 05/09/18 00:42 Ur Squamous Epith Cells Many per lpf (None-Few) H 05/09/18 00:42 Ur Culture Indicated? NO. (NO) A 05/09/18 00:42 - Microbiology Findings Microbiology Findings: Microbiology, Last 48 Hours 05/09/18 00:30 Legionella Antigen - Final Urine,[place] Streptococcus pneumoniae Antigen (M - Final 05/08/18 17:58 Blood Culture - Preliminary Peripheral Venipuncture Culture is incubating and being continuously monitored for growth. Final report to follow. 05/08/18 17:59 Blood Culture - Preliminary Peripheral Venipuncture Culture is incubating and being continuously monitored for growth. Final report to follow. 05/08/18 17:59 Influenza Types A,B Antigen - Final Nasopharyngeal - Clinical Findings Intake & Output: Intake & Output 05/08/18 05/09/18 05/09/18 23:59 07:59 15:59 Intake Total 1010 / 1010 1102.4 / 1102.4 100 / 100 Output Total 100 / 100 0 / 0 Balance 910 / 910 1102.4 / 1102.4 100 / 100 Weight 68.4 kg Consult Discharge Plan - Plan Referrals: Elda Cobb CNP [Primary Care Provider] - - Attending Attestation I examined this patient and my medical decision-making was reviewed with the Resident Physician. I agree with the documented findings, disposition and treatment plan as described except to the extent set forth below. Patient seen and examined. Labs, radiology, chart personally reviewed. Agree with resident's history and physical, assessment, plan with following comments: VAPOR COATER: Patient follows commands, Pulmonary: Vent changed Cardiovascular: relatively stable GI: Nutrition per dietary and GI prophylaxis per routine Heme: DVT prophylaxis per routine ID: Continue antibiotics and plan to de-escalation Renal; urine out put and renal funtion reviewed Endorcine: blood glucose is monitored Lines: all lines checked and no evidence of infections Skin: skin care to prevent pressure ulcers per nursing routine care I had long discussion with son at the bed time and discussed with I spent 80 min of Critical Care time with this patient. It involved decision making of high complexity to assess, manipulate, and support vital organ system failure and/or to prevent further life threatening deterioration of the patient's condition. The time involved in the performance of separately reportable procedures was not counted toward critical care time. <Nirav Kuo S - Last Filed: 05/09/18 11:43> Date of Encounter: 05/09/18 Time of Encounter: 11:16 Assessment and Plan (1) Acute respiratory failure Current Visit: Yes Status: Acute Pt presented to [facility] overnight and was intubated in the ICU due to worsening respiratory status - this morning son is at bedside and he explains that she has had worsening URI symptoms over the last few weeks CXR from admission showed - diffuse airspace opacities, right greater left. Findings are concerning for infection in the appropriate clinical setting. Asymmetric edema remains a differential consideration. - pt initially presumed to have ARDS and was treated as such with paralytics, low TV Included on the differential: 1) infectious community acquired pneumonia, pt has not had hospitalization in last 90 days 2) acute eosinophilic pneumonia 3) acute interstitial pneumonia 4) ARDS 5) viral origin 6) asymmetric pulmonary edema (R>L) 5) renopulmonary syndrome and/or vasculitis 6) rheumatoid related lung injury Pt had bedside BAL this morning with Dr. Saadlla ABG from this morning pH 7.18, pCO2 53, pO2 91, HCO3 20 Serology negative Legionella, strep, influenza tests negative KUB immediately after HD cath/femoral CVC Bilateral femoral catheters are demonstrated, left overlying the left sacrum, right overlying the right external iliac region No acute complications after procedure, pt tolerated well Plan: - continue vanc, zosyn, levaquin day 1 - blood cx pending - BAL report pending Anti-CCP pending RF pending ANCA (MPO/PR3) Cultures pending (legionella, respiratory) Cytology pending - MRSA swab pending - CVC line placed in femoral, no acute complications - ECHO pending - continue propofol and fentanyl for sedation - pt to remain in ICU for further workup and management - protonix IVP - restraints ordered Qualifiers: Respiratory failure complication: hypoxia Qualified Code(s): J96.01 - Acute respiratory failure with hypoxia (2) Hyperkalemia Current Visit: Yes Status: Acute Potassium of 6.2 with creatinine of 6.03 ---> 6.60 - nephrology alerted and urgent HD will be started per Dr Thorne - pt does only have two other creatinine noted on [employer] from and were 0.83, 0.93 EKG changes on monitor included bradycardia Unknown cause for LACY at this time, possibly related to a renopulmonary syndrome and/or vasculitis Plan: - neprhology consulted - HD line placed today by myself and Dr. Thorne, no acute complications - calcium glucoronate to stabilize the cardiac membrane, duonebs, insulin x1 per Dr. Thorne - Laureen dialysis urgently - retroperitoneal US pending - orders as per nephrology include: protein electrophoresis ANCA MPO/PR3 profile complement C3/4 (3) Anemia Current Visit: Yes Status: Acute Patient anemic with unknown source at this time. - hemoglobin on admission 6.1, repeat this morning 7.8 - received 2u pRBC on arrival to ICU Plan: - consider consult to GI when more stable - consider CT abdomen when more stable - FOBT pending - anemia workup as ordered by nephrology vitamin B12 pending, folate, iron profile, and ferritin pending - continue to monitor H&H Qualifiers: Anemia type: unspecified type Qualified Code(s): D64.9 - Anemia, unspecified (4) Pneumonia Current Visit: Yes Status: Suspected Suspected. See plan as above. Abx as above. Qualifiers: Pneumonia type: due to unspecified organism Laterality: bilateral Lung location: unspecified part of lung Qualified Code(s): J18.9 - Pneumonia, unspecified organism (5) LACY (acute kidney injury) Current Visit: Yes Status: Acute See plan as above for electrolyte abnormalities. (6) DVT prophylaxis Current Visit: Yes Status: Acute scd (7) Hypertension Current Visit: Yes Status: Acute Chronic. Home PO meds held. Qualifiers: Hypertension type: essential hypertension Qualified Code(s): I10 - Essential (primary) hypertension (8) Metabolic acidosis Current Visit: Yes Status: Acute Likely secondary to LACY. See plan as above. (9) Sepsis Current Visit: Yes Status: Acute Pt met sepsis criteria on admission for RR>20, WBC 27 Continues to meet 2/4 criteria for RR and WBC 21 See plan as above. Qualifiers: Sepsis type: sepsis due to unspecified organism Qualified Code(s): A41.9 - Sepsis, unspecified organism History of Present Illness Consult date: 05/09/18 Requesting physician: Capo Horton Reason for consult: other (ARDS) Chief complaint: URI symptoms History of present illness: Mrs Benjamin is a 67 yo female who has a PMH of HTN, HLD, rheumatoid arthritis and axniety. She came to [facility] overnight and presented with worsening SOB from baseline. She has had multiple respiratory infxn over the last two months. Most hx is gathered from hospitalist H&P and son, who is at bedside as the pt was intubated overnight for increasing respiratory distress. The son reports she has been complaining of increasing SOB and multiple URI. She has never been on home oxygen nor has she been given a diagnosis of COPD, although she was a former smoker. She did report to night resident that she had increasing SOB during ambulation, which is why she came to the ER. She denied any chest pain, pressure or tightness to him and she also denied increasing swelling in the LE. She did report a constant dry cough. In the ER there was concern for severe sepsis with organ damage. She was put on BiPAP and was mentating appropriately. She was foun d to have a hemoglobin of 6.1, which she got 2 u pRBC for. She was found to have a creatinine of 6.03 and GFR of 7. Nephrology was consulted and so was critical care. She is seen at bedside this morning by myself and Dr. Schwartz. Son is at bedside as well from [place], [place]. She is intubated and is resting comfortably. I called Dr Thorne, nephrology, who came to bedside and supervised me for a CVC to the right femoral and a left temporary HD line. Pt to be started on laureen. Past Med Surg Social Fam HX - Past Medical History Medical history: hyperlipidemia, hypertension, RA Additional medical history: left leg pain Psychiatric history: anxiety - Past Surgical History Surgical History: other Additional surgical history: T&A, tubal ligation. heart cath - Social History Smoking Status: Former smoker Smokeless Tobacco Status: No Alcohol use: none Drug use: none ROS unobtainable: due to endotracheal tube All Systems: The remainder of the systems were reviewed and are negative Physical Examination Vital Signs: Vital Signs, Last 4 Hours Temp Pulse Resp BP Pulse Ox 05/09/18 06:00 48 26 89/50 95 05/09/18 05:00 46 26 93/51 96 05/09/18 04:00 47 20 93/51 96 05/09/18 03:31 20 90/51 98 05/09/18 03:30 47 20 91/52 98 05/09/18 03:00 95.0 F L 53 20 90/52 98 05/09/18 02:30 49 20 107/57 96 General appearance: asleep Eyes: nonicteric ENT: oropharynx dry Effort: normal Auscultation: bilateral: diminished breath sounds Cardiovascular: other (bradycardic, s1s2, cta) Gastrointestinal: soft, non-tender, non-distended Integumentary: normal Extremities: no clubbing, pink and warm, pulses normal, no ischemia or pe techiae, edema (minimal edema) Musculoskeletal: no deformities unable to assess due to mental status other (unable to assess due to ET ) Ventilator Settings Ventilator Settings: Ventilator Settings, Last 8 Hours Ventilator Tidal Volume 300 Setting Ventilator Tidal Volume 300 Setting Ventilator Tidal Volume 300 Setting Ventilator Tidal Volume 300 Setting Ventilator Tidal Volume 300 Setting Ventilator Tidal Volume 300 Setting Ventilator Tidal Volume 300 Setting Ventilator Tidal Volume 300 Setting Ventilator Tidal Volume 300 Setting Ventilator Tidal Volume 300 Setting Ventilator Tidal Volume 300 Setting Ventilator Tidal Volume 300 Setting Ventilator Tidal Volume 300 Setting Ventilator Tidal Volume 380 Setting Ventilator Tidal Volume 380 Setting Ventilator Tidal Volume 380 Setting Ventilator Tidal Volume 380 Setting Ventilator Respiratory Rate 26 Setting Ventilator Respiratory Rate 26 Setting Ventilator Respiratory Rate 26 Setting Ventilator Respiratory Rate 20 Setting Ventilator Respiratory Rate 20 Setting Ventilator Respiratory Rate 20 Setting Ventilator Respiratory Rate 20 Setting Ventilator Respiratory Rate 20 Setting Ventilator Respiratory Rate 20 Setting Ventilator Respiratory Rate 20 Setting Ventilator Respiratory Rate 20 Setting Ventilator Respiratory Rate 20 Setting Ventilator Respiratory Rate 20 Setting Ventilator Respiratory Rate 16 Setting Ventilator Respiratory Rate 16 Setting Ventilator Respiratory Rate 16 Setting Ventilator Respiratory Rate 16 Setting Actual Respiratory Rate 26 Actual Respiratory Rate 26 Actual Respiratory Rate 20 Actual Respiratory Rate 20 Actual Respiratory Rate 20 Actual Respiratory Rate 20 Actual Respiratory Rate 20 Actual Respiratory Rate 20 Actual Respiratory Rate 20 Actual Respiratory Rate 26 Actual Respiratory Rate 26 Actual Respiratory Rate 18 Actual Respiratory Rate 18 Actual Respiratory Rate 19 Positive End Expiratory 8 Pressure Positive End Expiratory 8 Pressure Positive End Expiratory 8 Pressure Positive End Expiratory 8 Pressure Positive End Expiratory 8 Pressure Positive End Expiratory 8 Pressure Positive End Expiratory 8 Pressure Positive End Expiratory 8 Pressure Positive End Expiratory 8 Pressure Positive End Expiratory 8 Pressure Positive End Expiratory 8 Pressure Positive End Expiratory 8 Pressure Positive End Expiratory 8 Pressure Positive End Expiratory 8 Pressure Positive End Expiratory 8 Pressure Positive End Expiratory 8 Pressure Positive End Expiratory 8 Pressure Peak Inspiratory Airway 27 Pressure Peak Inspiratory Airway 27 Pressure Peak Inspiratory Airway 27 Pressure Peak Inspiratory Airway 27 Pressure Peak Inspiratory Airway 27 Pressure Peak Inspiratory Airway 26 Pressure Peak Inspiratory Airway 26 Pressure Peak Inspiratory Airway 26 Pressure Peak Inspiratory Airway 22 Pressure Peak Inspiratory Airway 14 Pressure Peak Inspiratory Airway 14 Pressure Peak Inspiratory Airway 14 Pressure Peak Inspiratory Airway 33 Pressure Peak Inspiratory Airway 14 Pressure Results - Laboratory Findings CBC and BMP: 05/09/18 09:05 05/09/18 09:05 ABG ABG pH 7.19 pH Units (7.32-7.45) L* 05/09/18 05:56 ABG pCO2 55 mmHg (35-45) H 05/09/18 05:56 ABG pO2 83 mmHg (85-104) L 05/09/18 05:56 ABG O2 Saturation 93 % (95-98) L 05/09/18 05:56 Abnormal lab findings: Abnormal lab results WBC 19.8 K/mcL (4.3-11.1) H 05/09/18 03:38 RBC 2.73 M/mcL (3.82-4.97) L 05/09/18 03:38 Hgb 7.7 g/dL (11.5-15.4) L D 05/09/18 03:38 Hct 23.4 % (35.3-44.9) L 05/09/18 03:38 Plt Count 469 K/mcL (140-400) H 05/09/18 03:38 Neutrophils # 17.2 K/mcL (1.6-8.9) H 05/09/18 03:38 Nucleated RBCs/100 WBC 0.4 /100 WBC (0) H 05/09/18 03:38 Platelet Estimate Marked Increase (Normal) H 05/08/18 17:24 Rouleaux Present (Not Present) A 05/08/18 17:24 ABG pH 7.19 pH Units (7.32-7.45) L* 05/09/18 05:56 ABG pCO2 55 mmHg (35-45) H 05/09/18 05:56 ABG pO2 83 mmHg (85-104) L 05/09/18 05:56 ABG O2 Saturation 93 % (95-98) L 05/09/18 05:56 ABG Base Excess -7 mEq/L (-2 to 3) L 05/09/18 05:56 VBG pH 7.18 pH Units (7.32-7.42) L* 05/08/18 17:55 VBG pO2 66 mmHg (25-50) H 05/08/18 17:55 VBG HCO3 16 mEq/L (21-27) L 05/08/18 17:55 Sodium 128 mEq/L (136-145) L 05/09/18 03:38 Potassium 5.3 mEq/L (3.5-5.1) H 05/09/18 03:38 Chloride 94 mEq/L (98-107) L 05/09/18 03:38 Carbon Dioxide 20 mEq/L (23-29) L 05/09/18 03:38 BUN 94 mg/dL (8-23) H 05/09/18 03:38 Creatinine 6.33 mg/dL (0.60-1.20) H 05/09/18 03:38 Est GFR ( Amer) 8 (> 60) L 05/09/18 03:38 Est GFR (Non-Af Amer) 7 (> 60) L 05/09/18 03:38 Glucose 125 mg/dL (70-105) H 05/09/18 03:38 POC Glucose 205 mg/dL (70-99) H 05/08/18 21:34 Calcium 8.3 mg/dL (8.6-10.3) L 05/09/18 03:38 Venous Ioniz Calcium 1.06 mmol/L (1.15-1.35) L 05/09/18 03:54 Phosphorus 9.4 mg/dL (2.7-4.5) H 05/09/18 03:38 Magnesium 2.7 mg/dL (1.6-2.6) H 05/09/18 03:38 B-Natriuretic Peptide 2045 pg/mL (Less than 100) H 05/09/18 03:38 Urine Clarity Turbid (Clear) A 05/09/18 00:42 Urine Protein 100 mg/dL (Neg-Trace) H 05/09/18 00:42 Urine Blood Large (Negative) H 05/09/18 00:42 Ur Leukocyte Esterase Moderate (Negative) H 05/09/18 00:42 Urine Microscopic RBC 5-15 per hpf (0-3) H 05/09/18 00:42 Urine Microscopic WBC 15-30 per hpf (0-3) H 05/09/18 00:42 Ur Squamous Epith Cells Many per lpf (None-Few) H 05/09/18 00:42 Ur Culture Indicated? NO. (NO) A 05/09/18 00:42 - Microbiology Findings Microbiology Findings: Microbiology, Last 48 Hours 05/09/18 00:30 Legionella Antigen - Final Urine,[place] Streptococcus pneumoniae Antigen (M - Final 05/08/18 17:58 Blood Culture - Preliminary Peripheral Venipuncture Culture is incubating and being continuously monitored for growth. Final report to follow. 05/08/18 17:59 Blood Culture - Preliminary Peripheral Venipuncture Culture is incubating and being continuously monitor ed for growth. Final report to follow. 05/08/18 17:59 Influenza Types A,B Antigen - Final Nasopharyngeal - Clinical Findings Intake & Output: Intake & Output 05/08/18 05/08/18 05/09/18 15:59 23:59 07:59 Intake Total 1010 / 1010 938.4 / 938.4 Output Total 100 / 100 0 / 0 Balance 910 / 910 938.4 / 938.4 Weight 68.4 kg
[2018-05-09] MEDS ORDERED: *HR* Midazolam HCl 2 MG/2 ML VIAL IV ONE (07:23)
[2018-05-09] MEDS ORDERED: *HR* Succinylcholine 200 MG/10 ML VIAL IVP ONE (07:23)
[2018-05-09] MEDS ORDERED: *HR* Etomidate 20 MG/10 ML AMPUL IVP ONE (07:23)
[2018-05-09] MEDS ORDERED: FentaNYL (PF) 1,000 MCG in 0.9 % Sodium Chloride 80 ML IVC SCH (07:30)
[2018-05-09] MEDS ORDERED: *HR* Atropine Sulfate 1 MG/10 ML SYRINGE ONE (08:21)
--- NOTE | 2018-05-09 08:29 | Nephrology Consult Note ---
Date of Encounter: 05/09/18 Time of Encounter: 08:24 Assessment and Plan (1) LACY (acute kidney injury) Current Visit: Yes Status: Acute Patient with multifactorial oliguric acute kidney injury secondary to severe sepsis with shock. She is critically ill with hyperkalemia and anion gap metabolic acidosis and rapidly worsening renal function. She is not on pressors at this time, however she may need this relatively soon. Secondary to the patient's renal function and multiple comorbidities it is felt that she will need renal replacement therapy. Secondary to her shock physiology intermittent hemodialysis would not be appropriate. We will initiate CVVHDF with no fluid removal initially, however will change that to net 0 UF once her blood pressure stabilizes. We will order a renal ultrasound and labs to evaluate for other causes of acute kidney injury, although this is likely severe ATN. Thank you for the consult. Will follow with you. 51 minutes spent in the care of this critically ill patient. Communication with the primary team and covering nurse. Orders for the CVVHDF. This was separate from supervision of the central line and non-tunneled dialysis line. (2) Acute respiratory failure Current Visit: Yes Status: Acute Patient is intubated and sedated and on significant ventilatory support. Overall management by the critical care team. Qualifiers: Respiratory failure complication: hypoxia Qualified Code(s): J96.01 - Acute respiratory failure with hypoxia (3) Anemia Current Visit: Yes Status: Acute Patient with anemia of unclear etiology. We will check iron stores, vitamin B- 12, folate. Monitor for bleeding. Transfuse as needed. Qualifiers: Anemia type: unspecified type Qualified Code(s): D64.9 - Anemia, unspecified (4) Severe sepsis Current Visit: Yes Status: Acute Per critical care team. Patient on empiric antibiotics. Patient's CXR concerning for pneumonia. UA suggests possible UTI. (5) Hypertension Current Visit: Yes Status: Acute She is currently in shock. All antihypertensive medication should be held. Qualifiers: Qualified Code(s): I10 - Essential (primary) hypertension (6) Hyperkalemia Current Visit: Yes Status: Acute Patient with rapidly rising potassium level. We are in the process of initiating CVVHDF, however secondary to changes on her telemetry we will initiate medical management first. (7) Metabolic acidosis Current Visit: Yes Status: Acute Will give supplemental bicarbonate until CVVHDF can be initated. History of Present Illness - Reason for Consult Consult date: 05/09/18 Acute Kidney Injury - Chief Complaint LACY - History of Present Illness Ms. Benjamin is a 67 yo man with a history of hypertension who presents for dyspnea. She developed acute respiratory failure and required intubation. History was obtained from review of the electronic record as patient is intubated, sedated and unable to provide a history. [facility] was consulted for assistance with acute kidney injury and hyperkalemia. Patient is currently critically ill with sepsis, respiratory failure, and hypotension. Past Med Surg Social Fam HX - Past Medical History Medical history: hyperlipidemia, hypertension, RA Additional medical history: left leg pain Psychiatric history: anxiety - Past Surgical History Surgical History: other Additional surgical history: T&A, tubal ligation. heart cath - Social History Smoking Status: Former smoker Smokeless Tobacco Status: No Alcohol use: none Drug use: none Medications and Allergies Atenolol [Tenormin] 25 mg PO DAILY 05/08/18 [History] Bupropion HCl [Wellbutrin Xl] 300 mg PO QAM 05/08/18 [History] Cholecalciferol (Vitamin D3) [Vitamin D] 400 unit PO DAILY 05/08/18 [History] Cinnamon Bark [Cinnamon] 500 mg PO DAILY 05/08/18 [History] Losartan/Hydrochlorothiazide [Losartan-Hctz 100-25 mg Tab] 1 each PO DAILY 05/08/18 [History] [place]-3S/Dha/Epa/Fish Oil [Fish Oil Dr 1,000 mg Softgel] 1 each PO DAILY 05/08/18 [History] Allergy/AdvReac Type Severity Reaction Status Date / Time cephalexin [From Keflex] Allergy Hives Verified 10/05/17 11:38 Review of Systems ROS unobtainable: due to endotracheal tube Exam - Vital Signs Vital signs: Initial Vital Signs Temp Pulse Resp BP Pulse Ox 97.7 F 73 24 150/61 86 05/08/18 17:19 05/08/18 17:19 05/08/18 17:19 05/08/18 17:19 05/08/18 17:19 Vital Signs - Last 8 Hours Temp Pulse Resp BP Pulse Ox 05/09/18 08:00 97.7 F 49 20 87/48 96 05/09/18 07:24 26 91/49 97 05/09/18 07:00 50 26 91/49 96 05/09/18 06:21 26 89/49 95 05/09/18 06:00 48 26 89/50 95 05/09/18 05:00 46 26 93/51 96 05/09/18 04:00 47 20 93/51 96 05/09/18 03:31 20 90/51 98 05/09/18 03:30 47 20 91/52 98 05/09/18 03:00 95.0 F L 53 20 90/52 98 05/09/18 02:30 49 20 107/57 96 05/09/18 02:00 97.0 F L 51 20 108/62 99 05/09/18 01:45 20 119/61 98 05/09/18 01:30 48 26 119/61 99 05/09/18 01:00 48 29 104/56 99 05/09/18 00:27 97.0 F L 48 26 119/61 99 Intake and Output 05/08/18 05/09/18 05/09/18 23:59 07:59 15:59 Intake Total 1010 / 1010 1102.4 / 1102.4 Output Total 100 / 100 0 / 0 Balance 910 / 910 1102.4 / 1102.4 Intake: IV Fluids 1010 / 1010 402.4 / 402.4 0.9 % Sodium Chloride 1,000 ML 500 / 500 @ 999 mls/hr IVC .Q1H1M SRINIVAS Rx# :[id number] FentaNYL (PF) 1,000 MCG In 0.9 100 / 100 % Sodium Chloride 80 ML @ 50 MCG/HR 5 mls/hr IVC CONT SRINIVAS Rx #:[id number] Diprivan 1,000 mg In 100 ml @ 200 / 200 10 MCG/KG/MIN 4.096 mls/hr IVC .Q24H SRINIVAS Rx#:[id number] Norcuron 50 MG In 0.9 % Sodium 102.4 / 102.4 Chloride 200 ML @ 1 MCG/KG/MIN 16.42 mls/hr IVC CONT SRINIVAS Rx#: [id number] Merrem 1,000 MG In Water for 10 / 10 inj. (sterile) 10 ML @ 120 mls/ hr IVP NOW STA Rx#:[id number] Zithromax 500 mg In Dextrose 5% 250 / 250 250 ML @ 252 mls/hr IVPB ONCE ONE Rx#:[id number] Vancocin 1,000 MG In 0.9 % 250 / 250 Sodium Chloride 250 ML @ 167 mls/hr IVPB ONCE ONE Rx#: [id number] Oral 0 / 0 0 / 0 Blood Product 0 / 0 700 / 700 Rbcs Leuko Poor As-1 Unit 350 / 350 [id number] Rbcs Leuko Poor As-1 Unit 0 / 0 350 / 350 [id number] Output: Catheter 100 / 100 0 / 0 Other: Weight 68.4 kg Blood Glucose* 205 - General Appearance General appearance: well-developed, well-nourished, sedated on ventilator, intubated EENT: ATNC Neck: supple Respiratory: course breath sounds Cardiology: no edema Additional Comments: bradycarcardic Gastrointestinal: no tenderness Integumentary: warm and dry Additional Comments: Patient was on paralytic. Musculoskeletal: no cyanosis Additional Comments: unobtainable as patient is intubated and sedated. Results - Lab Results 05/09/18 09:05 05/09/18 09:05 Most recent lab results ABG pH 7.19 pH Units (7.32-7.45) L* 05/09/18 05:56 ABG pCO2 55 mmHg (35-45) H 05/09/18 05:56 ABG pO2 83 mmHg (85-104) L 05/09/18 05:56 ABG HCO3 21 mEq/L (21-27) 05/09/18 05:56 ABG O2 Saturation 93 % (95-98) L 05/09/18 05:56 Calcium 8.3 mg/dL (8.6-10.3) L 05/09/18 03:38 Phosphorus 9.4 mg/dL (2.7-4.5) H 05/09/18 03:38 Magnesium 2.7 mg/dL (1.6-2.6) H 05/09/18 03:38 Consult Discharge Plan - Plan Referrals: Elda Cobb, CHASER APPRENTICE [Primary Care Provider] -
[2018-05-09 08:31] LABS: ABG Base Excess -8 mEq/L (-2 to 3); ABG HCO3 20 mEq/L (21-27); ABG Oxygen Saturation 94 % (95-98); ABG PCO2 53 mmHg (35-45); ABG PH 7.18 pH Units (7.32-7.45); ABG PO2 91 mmHg (85-104); ABG TCO2 21 mEq/L (20-26); Blood Gas Modality VC; Blood Gas PEEP 8 cm H2O; Blood Gas Respiration Rate 20; Blood Gas VT 380 cc
[2018-05-09] MEDS ORDERED: Levofloxacin 500 MG/100 ML 500 MG/100 ML BAG IVPB SCH (09:00)
[2018-05-09 09:08] LABS: Sodium, Urine 17.8 mEq/L
[2018-05-09 09:17] LABS: Basophils % 0.1 %; Hematocrit 24.2 % (35.3-44.9); Hemoglobin 7.8 g/dL (11.5-15.4); Immature Granulocytes % 1.7 % (0-4); Lymphocytes # 0.5 K/mcL (0.6-4.6); Lymphocytes % 2.6 %; Mean Corpuscular HGB Conc 32.2 g/dL (31.6-35.5); Mean Corpuscular Hemoglobin 28.2 pg (28.0-33.3); Mean Corpuscular Volume 87.4 fL (83.0-100.0); Mean Platelet Volume 9.9 fL (9.4-12.4); Monocytes # 0.4 K/mcL (0.0-1.3); Monocytes % 1.7 %; Neutrophils # 19.7 K/mcL (1.6-8.9); Nucleated Red Blood Cells 0.4 /100 WBC (0); Platelet Count 447 K/mcL (140-400); Red Blood Count 2.77 M/mcL (3.82-4.97); Red Cell Distribution Width 14.6 % (11.5-14.5); Segmented Neutrophils % 93.9 %
[2018-05-09 09:25] LABS: INR 1.2; Prothrombin Time 13.6 Seconds (9.4-12.1)
[2018-05-09 09:36] LABS: Calcium 8.2 mg/dL (8.6-10.3); Potassium 6.2 mEq/L (3.5-5.1)
--- NOTE | 2018-05-09 09:46 | Electrocardiograph Report ---
[address] [place], [place] [address] Test Date: 2018-05-08 Pat Name: Wendy Benjamin Department: [id number] Room: 04 Gender: F Research Laboratory Specialist: : 1950 Requested By: Sohan Benavides Order Number: [id number] Reading MD: Rand Fletcher Measurements Intervals [place] Rate: 59 P: 66 LA: 157 QRS: 50 QRSD: 102 T: 47 QT: 477 QTc: 473 Interpretive Statements Sinus rhythm Probable left atrial enlargement RSR' in V1 or V2, probably normal variant Electronically Signed On 05-09-2018 9:44:23 EST by Rand Fletcher
[2018-05-09] MEDS ORDERED: Calcium Gluconate 2,000 MG in 0.9 % Sodium Chloride 100 ML IVPB PRN (10:16)
[2018-05-09] MEDS ORDERED: *HR* Heparin 5,000 UNIT/ML VIAL IV PRN (10:16)
[2018-05-09] MEDS ORDERED: *HR* Alteplase (Cathflo) 2 MG VIAL IVP PRN (10:16)
[2018-05-09] MEDS ORDERED: 0.9 % Sodium Chloride 1,000 ML PRIME ONE ×2 (10:16)
[2018-05-09] MEDS ORDERED: 0.9 % Sodium Chloride 1,000 ML PRIME SCH (10:30)
[2018-05-09] MEDS ORDERED: PrismaSATE BGK 4/2.5 5,000 ML CRRT SCH ×2 (10:30)
[2018-05-09] MEDS ORDERED: Calcium Chloride 4,000 MG in 0.9 % Sodium Chloride 1,000 ML CRRT SCH (10:30)
[2018-05-09] MEDS ORDERED: Insulin Human Regular 10 UNIT in 0.9 % Sodium Chloride 10 ML IV ONE (10:32)
[2018-05-09] MEDS ORDERED: *HR* Dextrose 25% in Water (Syg) 10 ML SYRINGE IVP ONE (10:32)
[2018-05-09] MEDS ORDERED: Sodium Bicarbonate 50 MEQ/50 ML VIAL IVP ONE (10:34)
[2018-05-09] MEDS ORDERED: Albuterol 2.5 MG/3 ML NEBULIZER IH SCH (10:45)
[2018-05-09 10:52] LABS: Bilirubin,Urine Negative (Negative); Blood,Urine Large (Negative); Clarity,Urine Cloudy (Clear); Color,Urine Dark Yellow (Yellow); Glucose,Urine (UA) Normal (Normal); Ketones,Urine Negative (Negative); Leukocyte Esterase,Urine Small (Negative); Nitrite,Urine Negative (Negative); Protein,Urine 100 mg/dL (Neg-Trace); Specific Gravity,Urine 1.021 (1.010-1.025); Urobilinogen,Urine Normal (Normal)
[2018-05-09] MEDS ORDERED: *HR* Dextrose 50 % in Water (Syg) 50 ML SYRINGE IVP ONE (10:53)
[2018-05-09 10:58] LABS: Bacteria,Urine Moderate per hpf (None-Few); Squamous Epithelial Cell,Urine Few per lpf (None-Few)
--- NOTE | 2018-05-09 10:58 | Procedure Note ---
Date of procedure: 05/09/18 Pre-op diagnosis: hypotension, need for venous access Post-op diagnosis: same Procedure: Indication: Hemodynamic monitoring/Intravenous access Resident: ravi kuo Attending: Dr Thorne A time-out was completed verifying correct patient, procedure, site, positioning, and special equipment if applicable. The patient was placed in a dependent position appropriate for central line placement based on the vein to be cannulated. The patients right groin was prepped and draped in sterile fashion. 1% Lidocaine was used to anesthetize the surrounding skin area. A triple lumen 9-Georgian Cordis catheter was introduced into the the common femoral vein using the Seldinger technique and under ultrasound guidance. The catheter was threaded smoothly over the guide wire and appropriate blood return was obtained. Each lumen of the catheter was evacuated of air and flushed with sterile saline. The catheter was then sutured in place to the skin and a sterile dressing applied. Perfusion to the extremity distal to the point of catheter insertion was checked and found to be adequate. Attending and resident was present for the entire procedure. Estimated Blood Loss: 5cc The patient tolerated the procedure well and there were no complications. KUB to check placement ordered immediately. Surgeon: Ravi Kuo Was there an doctor assistant present: Yes Division Toll Wire Chief: Simon Thorne Estimated blood loss (cc): 0 IV fluids (cc): 0 Urine output (cc): 0 Specimen: none Pathology: none sent Condition: critical Disposition: ICU
[2018-05-09] MEDS ORDERED: CITRATE DEXTROSE CRRT SCH (10:59)
--- NOTE | 2018-05-09 11:00 | Procedure Note ---
Date of procedure: 05/09/18 Pre-op diagnosis: kidney failure , need for laureen Post-op diagnosis: same Procedure: Indication: Need for laureen, electrolyte abnormalities, urgent HD Resident: ravi kuo Attending: Dr Thorne A time-out was completed verifying correct patient, procedure, site, positioning, and special equipment if applicable. The patient was placed in a dependent position appropriate for central line placement based on the vein to be cannulated. The patients left groin was prepped and draped in sterile fashion. 1% Lidocaine was used to anesthetize the surrounding skin area. A triple lumen Cordis catheter was introduced into the thecommon femoral vein using the Seldinger technique and under ultrasound guidance. The catheter was threaded smoothly over the guide wire and appropriate blood return was obtained. Each lumen of the catheter was evacuated of air and flushed with sterile saline. The catheter was then sutured in place to the skin and a sterile dressing applied. Perfusion to the extremity distal to the point of catheter insertion was checked and found to be adequate. Attending and resident was present for the entire procedure. Estimated Blood Loss: 5cc The patient tolerated the procedure well and there were no complications. Anesthesia: local Surgeon: Ravi Kuo Was there an personal injury legal assistant present: Yes Business Planning Manager: Simon Thorne Estimated blood loss (cc): 5 IV fluids (cc): 0 Urine output (cc): 0 Specimen: none Pathology: none sent Condition: critical Disposition: ICU
[2018-05-09 11:58] LABS: ABG Base Excess -8 mEq/L (-2 to 3); ABG HCO3 20 mEq/L (21-27); ABG Oxygen Saturation 97 % (95-98); ABG PCO2 50 mmHg (35-45); ABG PH 7.21 pH Units (7.32-7.45); ABG PO2 110 mmHg (85-104); ABG TCO2 21 mEq/L (20-26); Blood Gas Modality VC; Blood Gas PEEP 8 cm H2O; Blood Gas Respiration Rate 22; Blood Gas VT 380 cc
[2018-05-09 11:58] LABS: VBG Ionized Calcium 0.99 mmol/L (1.15-1.35)
[2018-05-09 12:23] LABS: Complement C3 102 mg/dL (87-200); Rheumatoid Factor 17 IU/mL (Less than 14)
[2018-05-09] MEDS ORDERED: *HR* Norepinephrine 4 MG/4 ML VIAL IVC ONE (12:31)
[2018-05-09] MEDS ORDERED: *HR* Atropine Sulfate 1 MG/10 ML SYRINGE IV ONE (12:31)
[2018-05-09] MEDS ORDERED: *HR* EPINEPHrine 1 MG/10 ML SYRINGE IVP ONE ×2 (12:31)
[2018-05-09] MEDS ORDERED: D5% in Water 250 ML IV BAG IV ONE (12:31)
[2018-05-09] MEDS ORDERED: Aminoglycoside Consult 1 EACH MC ONE (12:31)
[2018-05-09 12:32] LABS: % Iron Saturation 86 % (15-50); Iron 175 mcg/dL (50-170); Transferrin 146 mg/dL (203-362)
[2018-05-09 12:42] LABS: Magnesium 2.7 mg/dL (1.6-2.6); Potassium 5.2 mEq/L (3.5-5.1)
[2018-05-09 12:47] LABS: Folate 14.2 ng/mL (3.0-16.0)
[2018-05-09 12:50] LABS: Ferritin > 1500 ng/mL (10-120); Vitamin B12 > 1500 pg/mL (250-1100)
[2018-05-09 12:51] LABS: Troponin I 0.03 ng/mL (< 0.04)
--- NOTE | 2018-05-09 13:07 | Event Note ---
Addendum entered and electronically signed by Nirav Kuo 05/09/18 13:50: Edit: 7 rounds of epinephrine,4 bicarb, 2 calcium Original Note: <KuoNirav - Last Filed: 05/09/18 13:37> Date of Encounter: 05/09/18 Time of Encounter: 13:37 At approximately 1205 I was called to the pt room. Pt nurse noticed ST elevation on the monitor. She was also bradycardic in the high 30's and low 40's on the monitor. The crash cart and defibrilator was brought to the bedside, pt hooked u p to monitor. I ordered a STAT EKG and troponin, which was 0.03. EKG was unable to be performed before the pt . She was given a 1/2 dose of atropine with no response. A second dose of atropine was given without response. She had no pulses. CPR was initiated at 12:09. SELWYN ALVES was called at 12:[address] Schwartz came to bedside. Nurse administered bicarb push. She had multiple rounds of CPR and epinephrine and no ROSC was obtained. She had 4 rounds of epinephrine with a 1/2 dose push given. She had 3 of bicarb and 2 of calcium. She was given dextrose with insulin. The pt remained asystole without pulses at every pulse check. Pt had time 1235. Patient family members at bedside and throughout the entirety of the code. Chaplain Juarez at bedside. Presumed cause of is cardiac arrest secondary to hyperkalemia. See note. <Ce Schwartz - Last Filed: 05/09/18 22:03> Date of Encounter: 05/09/18 The history, physical exam, and medical decision making was performed by the medical student either while I was physically present and actively involved or I personally re-performed the exam and medical decision making. I have verified the accuracy of the medical student's documentation with regards to the history, physical exam findings, and medical decision making. Unfortunately patient condition deteriorated very quickly and as indicated above by the resident, CODE BLUE was started and followed protocol and family at the bedside during the CODE BLUE and suspect she had cardiac event since there was change in the ECG lead, I spent 35 min of Critical Care time with this patient. It involved decision making of high complexity to assess, manipulate, and support vital organ system failure and/or to prevent further life threatening deterioration of the patient's condition. The time involved in the performance of separately reportable procedures was not counted toward critical care time.
--- NOTE | 2018-05-09 13:09 | Death Note ---
<Nirav Kuo S - Last Filed: 05/09/18 13:28> Discharge Sum: Summary - Date and Time Date of admission: 05/09/18 00:26 Date of : 05/09/18 Time of : 12:35 - Summary Details: Mrs Benjamin is a 67 yo female who has a PMH of HTN, HLD, rheumatoid arthritis and anxiety. She came to [facility] overnight and presented with worsening SOB from baseline. She has had multiple respiratory infxn over the last two months. Most hx had to be gathered from hospitalist H&P and son, who is at bedside as the pt was intubated overnight for increasing respiratory distress. The son reports she has been complaining of increasing SOB and multiple URI. She has never been on home oxygen nor has she been given a diagnosis of COPD, although she was a former smoker. She did report to night resident that she had increasing SOB during ambulation, which is why she came to the ER. She denied any chest pain, pressure or tightness to him and she also denied increasing swelling in the LE. She did report a constant dry cough. In the ER there was concern for severe sepsis with organ damage. She was put on BiPAP and was mentating appropriately. She was found to have a hemoglobin of 6.1, which she got 2 u pRBC for. She was found to have a creatinine of 6.03 and GFR of 7. Nephrology was consulted and so was critical care. She ultimately was intubated overnight by Dr. Horton. ABG from this morning showed pH 7.21, pCO2 50, pO2 110, and HCO3 of 20. She was seen at bedside this morning by myself and Dr. Schwartz. Son was at bedside as well from [place], [place]. I called Dr Thorne, nephrology, who came to [facility] and supervised me for a CVC to the right femoral and a left temporary HD line so that the pt could be urgently started on [place]. KUB immediately after the line placement showed Bilateral femoral catheters are demonstrated, left overlying the left sacrum, right overlying the right external iliac region.The pt was found to have an increasing potassium. It was 5.1 on admission and increased to 5.2 and then to 6.2. Her creatinine on admission was 6.03 and increased to 6.33, then to 6.60. She was given a dose of calcium glucoronate to stabilize cardiac membrane, as well as duonebs and insulin/dextrose to help tx the hyperkalemia. The pt nurses called me to her room at approx 1205 and told me they noticed ST elevation on the monitor. The pt also had bradycardia in the high 30's and 40's on the monitor. Crash cart and defibrillator was brought to bedside and pt was hooked up onto the monitor. I ordered a STAT EKG and troponin, which was 0.03. EKG was unable to be performed before the pt . She was given a dose of atropine with no response. A second dose of atropine was given without response. She had no pulses. CPR was initiated at 12:09. Dr Schwartz was at bedside. See event note to follow. time 1235. Patient family members at bedside and throughout the entirety of the code. Chaplain Juarez at bedside. Presumed cause of is cardiac arrest secondary to hyperkalemia. - Additional Data Confirmation of as documented by pronouncing clinician: no pulse, no respirations, no heart sounds, pupils fixed and dilated Family: at bedside Additional persons at bedside: cecy Attending/PCP notified?: Yes Attending physician: John Weber MD Was code activated?: Yes Autopsy requested?: No yarn examiner skeins notified?: No Organ bank notified?: Yes Advance directives: No Hospice patient?: No Discharge Sum: Diag - PCOD Probable Cause of : Cardiac arrest Discharge Sum: Prov - Provider Primary care physician: Elda Cobb CNP Admitting clinician: Ryan Birmingham Attending physician on admission: Ce Shcwartz Consults: 05/08/18 18:49 Consult to Nephrology [CONS] Stat Consulting Provider: Kidney Sharee/LISSETH/JAYMIE/LAURYN Reason for Consult: LACY Call Completed: Yes 05/09/18 04:08 Consult to Pulmonology [CONS] Routine Consulting Provider: Pulm Crit Care & Sleep Sharee Reason for Consult: ARDS Time Notified: 04:09 Call Completed: No Pronouncing clinician: Nirav Kuo <Ce Schwartz - Last Filed: 05/09/18 22:04> Discharge Sum: Summary - Date and Time Date of admission: 05/09/18 00:26 - Additional Data Attending physician: John Weber MD Discharge Sum: Prov - Provider Primary care physician: Elda Cobb CNP Consults: 05/08/18 18:49 Consult to Nephrology [CONS] Stat Consulting Provider: Kidney Sharee/LISSETH/JAYMIE/LAURYN Reason for Consult: LACY Call Completed: Yes 05/09/18 04:08 Consult to Pulmonology [CONS] Routine Consulting Provider: Pulm Crit Care & Sleep Sharee Reason for Consult: ARDS Time Notified: 04:09 Call Completed: No - Attending Attestation I examined this patient and my medical decision-making was reviewed with the Resident Physician. I agree with the documented findings, disposition and treatment plan as described except to the extent set forth below. Patient seen and examined.
[2018-05-09 13:20] VITALS: BP 107/60
[2018-05-09 16:42] LABS: Appearance of Body Fluid Slightly Hazy (Clear); Volume of Body Fluid 10 mL
[2018-05-09] MEDS ORDERED: Pantoprazole 40 MG VIAL IVP SCH (18:00)
== END 2018-05-09 12:32 | disposition expired | DRG 871 ==
LOC: ICNU 17:10 → EMEROOARM 17:10 → ICNU 21:36
PROVIDERS: ADMIT Family Medicine; ATTEND Family Medicine